=== PATIENT | female | born 1975 | race Caucasian/White ===

== ENCOUNTER 2016-09-19 21:49 | Emergency (ER) | payer OTHER ==
[2016-09-19 22:10] VITALS: BP 141/83; PULSE 66; RESP 20; TEMP 98.6; O2SAT 98
[2016-09-19] MEDS ORDERED: Naproxen 550 mg Tab PO STA (22:23)
[2016-09-19] MEDS ORDERED: TDAP Vaccine 0.5 mL Syr IM ONE (23:37)
--- NOTE | 2016-09-19 23:50 | ED PDOC ---
Arrival/HPI <Lee Aranda - Last Filed: 09/19/16 23:56> - General Historian: Patient <Gloria Cardona PA-C - Last Filed: 09/20/16 01:56> - General Chief Complaint: Lower Extremity Problem/Injury Time Seen by Provider: 09/19/16 22:22 - History of Present Illness Narrative History of Present Illness (Text): 09/19/16 23:45 Patient reports injuring her left fourth toe tonight when a heavy object fell onto it and she sustained a laceration. Otherwise: (-) other injury, (-) numbness. tetanus not UTD PMD none (Gloria Cardona PA-C) Past Medical History - Provider Review Nursing Documentation Reviewed: Yes - Infectious Disease Hx of Infectious Diseases: None - Reproductive Menopause: No - Psychiatric Hx Substance Use: No - Surgical History Hx Appendectomy: Yes - Anesthesia Hx Anesthesia: Yes Hx Anesthesia Reactions: No <Gloria Cardona PA-C - Last Filed: 09/20/16 01:56> Family/Social History - Physician Review Nursing Documentation Reviewed: Yes Family/Social History: No Known Family HX Smoking Status: Unknown If Ever Smoked Hx Alcohol Use: No Hx Substance Use: No <Gloria Cardona PA-C - Last Filed: 09/20/16 01:56> Allergies/Home Meds <Lee Aranda - Last Filed: 09/19/16 23:56> <Gloria Cardona PA-C - Last Filed: 09/20/16 01:56> Allergies/Adverse Reactions: Allergies No Known Allergies Allergy (Verified 09/19/16 22:09) Home Medications: Home Meds Medication Instructions Recorded Confirmed No Known Home Med 09/19/16 09/19/16 Review of Systems - Review of Systems Constitutional: Normal. absent: Fatigue, Weight Change Musculoskeletal: Normal. absent: Arthralgias, Back Pain Skin: Normal. absent: Rash, Skin Lesions <Gloria Cardona PA-C - Last Filed: 09/20/16 01:56> Physical Exam <Lee Aranda - Last Filed: 09/19/16 23:56> <Gloria Cardona PA-C - Last Filed: 09/20/16 01:56> - Physical Exam Narrative Physical Exam (Text): 09/19/16 23:47 GENERAL APPEARANCE: Patient is awake, alert, oriented x 3, in no acute distress. SKIN: Warm, dry, (-) skin leasions or rashes. LOWER EXTREMITY: (+) 1 cm L shaped laceration to the dorsal L 4th toe with mild bleeding, (-) tenderness, (-) swelling, (-) ecchymosis, (-) crepitus, (-) deformity. Tendon function intact. (-) distal neurovascular deficit. 2 point discrimination. Remainder of foot, digits and ankle: (-) injury except. (Gloria Cardona PA-C) Vital Signs Temp Pulse Resp BP Pulse Ox 09/19/16 22:04 98.6 F 66 20 141/83 98 Medical Decision Making <Lee Aranda - Last Filed: 09/19/16 23:56> <Gloria Cardona PA-C - Last Filed: 09/20/16 01:56> ED Course and Treatment: 09/19/16 23:48 41 yo F sustained a laceration to the L 4th toe. Plan: -- XR L foot -- Naprosyn po -- Tdap -- Dermabond XR L foot: no fracture, no dislocation, as read by OLEGARIO Patient advised that official radiology read of XR is still pending and will call the patient if there is any discrepancy within 24 hours. The wound is L 4th toe. The wound was copiously irrigated with normal saline. The edges were reapproximated using dermabond by OLEGARIO. Bleeding was well controlled and the patient tolerated the procedure well. Based on history, exam and diagnostic results plan will be for outpatient follow up. Patient states she fully agrees with and understands discharge instructions. States that she agrees with the plan and disposition. Verbalized and repeated discharge instructions and plan. I have given the patient opportunity to ask any additional questions. Follow up with primary care physician referral in 1-2 days without fail. Return to the emergency room at any time for any new or worsening symptoms. (Gloria Cardona PA-C) - RAD Interpretation Radiology Orders: 09/19/16 22:22 FOOT LEFT 3 VIEWS ROUTINE [RAD] Stat - Medication Orders Current Medication Orders: Discontinued Medications Naproxen (Anaprox Ds) 550 mg PO ONCE STA Stop: 09/19/16 22:24 Last Admin: 09/19/16 22:41 Dose: 550 MG Tetanus/Reduced Diphtheria/Acell Pertussis (Boostrix Vaccine Inj) 0.5 ml IM .ONCE ONE Stop: 09/19/16 23:38 Last Admin: 09/20/16 00:28 Dose: 0.5 ML [facility] Immunization Data Document 09/20/16 00:28 AYESHA (Rec: 09/20/16 00:31 [facility]-[id number]) Immunization Data Opt out of sending immunization data to Yes respository? Suppress immunization data to other Yes providers from registry? Vaccine Eligibility Yes Vaccine Information Sheet Given Yes Informed Consent Given Yes Vaccine Lot Number [id number] Vaccine Expiration Date 09/21/16 Site Given Right Deltoid Route Intramuscular - PA / HELICOPTER ENGINEER / Resident Statement / has reviewed & agrees with the documentation as recorded. / has examined the patient and agrees with the treatment plan. <Lee Aranda - Last Filed: 09/19/16 23:56> - PA / HELICOPTER ENGINEER / Resident Statement BLESSING has reviewed & agrees with the documentation as recorded. <Gloria Cardona PA-C - Last Filed: 09/20/16 01:56> Disposition/Present on Arrival <Lee Aranda - Last Filed: 09/19/16 23:56> - Present on Arrival Any Indicators Present on Arrival: No History of DVT/PE: No History of Uncontrolled Diabetes: No Urinary Catheter: No History of Decub. Ulcer: No History Surgical Site Infection Following: None - Disposition Have Diagnosis and Disposition been Completed?: Yes Disposition Time: 23:51 Patient Plan: Discharge <Gloria Cardona PA-C - Last Filed: 09/20/16 01:56> - Disposition Diagnosis: Toe contusion, Toe laceration Disposition: HOME/ ROUTINE Condition: GOOD Discharge Instructions (ExitCare): Foot Contusion (ED), Acute Wound Care (ED) Print Language: MICRONESIAN Additional Instructions: Thank you for letting us take care of you today. You were treated for contusion , toe laceration. The emergency medical care you received today was directed at your acute symptoms. Return to the Emergency Department if your symptoms worsen , do not improve, or if you have any other problems. Please call one of the physicians/clinics you have been referred to that are listed on the Patient Visit Information form that is included in your discharge packet. Bring any paperwork you were given at discharge with you along with any medications you are taking to your follow up visit. Our treatment cannot replace ongoing medical care by a primary care provider (PCP) outside of the emergency department. Thank you for allowing the [facility] team to be part of your care today. Referrals: iVnny Ramirez, [Staff Provider] - Follow up with primary Forms: WORK NOTE
--- NOTE | 2016-09-20 08:06 | RAD ---
PROCEDURE: Left Foot Radiographs. HISTORY: pain COMPARISON: None. FINDINGS: BONES: Normal. No fracture. JOINTS: Normal. SOFT TISSUES: Normal. OTHER FINDINGS: None. IMPRESSION: Normal left foot radiographs.
== END 2016-09-20 01:52 | disposition home or self-care (01) ==
LOC: ED 21:49
DX: S91.115A Laceration without foreign body of left lesser toe(s) without damage to nail, initial encounter (principal); S90.122A Contusion of left lesser toe(s) without damage to nail, initial encounter; W20.8XXA Other cause of strike by thrown, projected or falling object, initial encounter; Z23 Encounter for immunization